=== PATIENT | male | born 1960 | race Caucasian/White ===

== ENCOUNTER 2023-04-13 09:41 | Day surgery (SDC) | payer MEDICAID ==
[~2023-04-13 09:41] MED LIST: Lactated Ringers 1,000 ML IV SCH; Sodium Chloride 0.9% 10 ML Syringe FLUSH PRN; Sodium Chloride 0.9% 10 ML Syringe FLUSH SCH
[2023-04-13] MEDS ORDERED: Acetaminophen 325 MG Tab PO ONE (10:18)
[2023-04-13] MEDS ORDERED: Gabapentin 300 MG Cap PO ONE (10:19)
[2023-04-13] MEDS ORDERED: Dexamethasone 4 MG/ML 5 ML MDV ONE (10:41)
[2023-04-13] MEDS ORDERED: ceFAZolin 2 GM Vial ONE (10:41)
[2023-04-13] MEDS ORDERED: Ondansetron 4 MG/2 ML SDV ONE (10:41)
[2023-04-13] MEDS ORDERED: Propofol 200 MG/20 ML SDV ONE (10:46)
[2023-04-13] MEDS ORDERED: fentaNYL 100 MCG/2 ML SDV ONE (10:46)
[2023-04-13] MEDS ORDERED: Rocuronium 50 MG/5 ML Vial ONE ×2 (10:46→11:29)
[2023-04-13] MEDS ORDERED: HYDROmorphone 0.5 MG/0.5 ML Syringe ONE (11:04)
[2023-04-13] MEDS ORDERED: Succinylcholine 200 MG/10 ML MDV ONE (11:06)
[2023-04-13] MEDS ORDERED: Lidocaine 1% 30 ML SDV ONE (11:09)
[2023-04-13] MEDS ORDERED: Bupivacaine 0.5% 30 ML SDV ONE (11:09)
[2023-04-13] MEDS ORDERED: EPINEPHrine 1 MG/ML SDV ONE ×2 (11:11)
[2023-04-13] MEDS ORDERED: Neostigmine Methylsulfate 10 MG/10 ML MDV ONE (11:22)
[2023-04-13] MEDS ORDERED: Ibuprofen 600 MG Tab PO PRN (13:54)
[2023-04-13] MEDS ORDERED: traMADol 50 MG Tab PO PRN (13:55)
== END 2023-04-13 16:25 ==
LOC: JD.SDS 09:41
PROVIDERS: ATTEND Surgery
DX: K42.0 Umbilical hernia with obstruction, without gangrene (principal); I10 Essential (primary) hypertension; F41.9 Anxiety disorder, unspecified; Z79.899 Other long term (current) drug therapy
CPT/HCPCS: 49594; A9270; J0171; J0690; J1100; J1170; J2405; J2704; J2710; J3010; J3490; J7120; J0330